=== PATIENT | female | born 1970 | race Caucasian/White ===

== ENCOUNTER 2016-09-14 23:14 | Emergency (ER) | payer BC ==
[~2016-09-14] VITALS: Ht 162.6 cm; Wt 95.4 kg
[2016-09-14 23:41] VITALS: Ht 162.6 cm; Wt 95.4 kg
[2016-09-15] MEDS ORDERED: ONDANSETRON 4 MG INJ IV STA (00:37)
[2016-09-15] MEDS ORDERED: SOD CHLORIDE 0.9% 1,000 ML IV STA (00:37)
[2016-09-15] MEDS ORDERED: morphine 4 MG/ML VIAL IV STA (00:37)
[2016-09-15 01:20] LABS: ADD SCAN DIFF NO
[2016-09-15 01:35] LABS: ALBUMIN 4.2 g/dl (3.3-4.9)
[2016-09-15 01:36] LABS: POTASSIUM 3.7 mmol/L (3.5-5.1)
[2016-09-15 01:37] LABS: INR 0.85; PROTIME 11.6 Sec (12.2-14.2); PT RATIO 0.9
[2016-09-15 01:38] LABS: ALBUMIN/GLOBULIN RATIO 1.1; BILIRUBIN,INDIRECT 0.3 mg/dl (0-1.1); BILIRUBIN,TOTAL 0.3 mg/dl (0.2-1.3); CREATININE 0.58 mg/dl (0.44-1.00); PARTIAL THROMBOPLASTIN TIME 26.9 Sec (25.0-35.0)
[2016-09-15 01:39] LABS: BASOPHILS % 0.5 % (0.0-2.0); CALCIUM 9.5 mg/dl (8.4-10.2); EOSINOPHILS # 0.2 10^3/ul (0.0-0.5); EOSINOPHILS % 2.7 % (0.0-7.0); HEMATOCRIT 36.5 % (37.0-47.0); HEMOGLOBIN 11.7 g/dl (12.0-16.0); LYMPHOCYTES # 2.3 10^3/ul (0.8-2.9); LYMPHOCYTES % 26.2 % (15.0-51.0); MEAN CORPUSCULAR HEMOGLOBIN 27.2 pg (29.0-33.0); MEAN CORPUSCULAR HGB CONC 32.1 g/dl (32.0-37.0); MEAN CORPUSCULAR VOLUME 84.9 fl (82.0-101.0); MEAN PLATELET VOLUME 11.1 fl (7.4-10.4); MONOCYTE # 0.7 10^3/ul (0.3-0.9); MONOCYTES % 8.2 % (0.0-11.0); NEUTROPHIL # 5.4 10^3/ul (1.6-7.5); NEUTROPHILS % 62.1 % (39.0-77.0); PLATELET COUNT 330 10^3/UL (140-415); RED CELL DISTRIBUTION WIDTH 14.3 % (11.5-14.5); WHITE BLOOD COUNT 8.8 10^3/ul (4.8-10.8)
--- NOTE | 2016-09-15 01:45 | RADRPT ---
PROCEDURE: XR Knee. CLINICAL INDICATION: Trauma TECHNIQUE: AP, lateral and oblique view of the right knee were obtained. COMPARISON: There are no similar studies submitted for comparison. FINDINGS: There is normal mineralization.There is no acute fracture or dislocation.No destructive lesion is id entified. There is no joint effusion. IMPRESSION: No fracture or dislocation. RPTAT: HIKT .Sacha Acuña MD, MD Date Time Electronically viewed and signed by .Sacha Acuña MD, MD on 09/15/2016 01:44 .T/
[2016-09-15] MEDS ORDERED: LIDOCAINE 2% (MDV) 20 ML INJ INJ ONE (02:00)
[2016-09-15] MEDS ORDERED: PIPER-TAZO 3.375 GM IV (PMX) 100 ML IVPB ONE (02:00)
--- NOTE | 2016-09-15 02:48 | ERD ---
ER Documentation Chief Complaint Date/Time DATE: 09/15/16 TIME: 02:45 Chief Complaint Pt reports mechanical fall to R knee with laceration and appears to bone HPI Chemical fall to right knee with a laceration. She was ambulatory at the scene but the laceration is "deep". No fevers no chills no nausea no vomiting no other current complaints. Tetanus is up-to-date. ROS All systems reviewed and are negative except as per history of present illness. PMhx/Soc Medical and Surgical Hx: pt denies Medical Hx History of Surgery: Yes (c/s, endometrial tissue removal) Anesthesia Reaction: No Hx Psychiatric Problems: Yes (anxiety) Hx Alcohol Use: No Hx Substance Use: No Hx Tobacco Use: No Smoking Status: Never smoker Physical Exam Vitals Vital Signs Date Time Temp Pulse Resp B/P Pulse Ox O2 Delivery O2 Flow Rate FiO2 09/14/16 23:41 98.7 105 24 185/108 100 Physical Exam Const: [] Head: Atraumatic Eyes: Normal Conjunctiva ENT: Normal External Ears, Nose and Mouth. Neck: Full range of motion..~ No meningismus. Resp: Clear to auscultation bilaterally Cardio: Regular rate and rhythm, no murmurs Abd: Soft, non tender, non distended. Normal bowel sounds Skin: No petechiae or rashes Back: No midline or flank tenderness Ext: No cyanosis, or edema Neur: Awake and alert Psych: Normal Mood and Affect Result Diagram: 09/15/1610409/15/16 010 Results 24 hrs Laboratory Tests Test 09/15/16 01:05 White Blood Count 8.810^3/ul Red Blood Count 4.3010^6/ul Hemoglobin 11.7g/dl Hematocrit 36.5% Mean Corpuscular Volume 84.9fl Mean Corpuscular Hemoglobin 27.2pg Mean Corpuscular Hemoglobin Concent 32.1g/dl Red Cell Distribution Width 14.3% Platelet Count 26577^3/UL Mean Platelet Volume 11.1fl Neutrophils % 62.1% Lymphocytes % 26.2% Monocytes % 8.2% Eosinophils % 2.7% Basophils % 0.5% Nucleated Red Blood Cells % 0.0/100WBC Neutrophils # 5.410^3/ul Lymphocytes # 2.310^3/ul Monocytes # 0.710^3/ul Eosinophils # 0.210^3/ul Basophils # 0.010^3/ul Nucleated Red Blood Cells # 0.010^3/ul Prothrombin Time 11.6Sec Prothrombin Time Ratio 0.9 INR International Normalized Ratio 0.85 Activated Partial Thromboplast Time 26.9Sec Sodium Level 136mmol/L Potassium Level 3.7mmol/L Chloride Level 101mmol/L Carbon Dioxide Level 27mmol/L Anion Gap 12 Blood Urea Nitrogen 13mg/dl Creatinine 0.58mg/dl Glucose Level 104mg/dl Calcium Level 9.5mg/dl Total Bilirubin 0.3mg/dl Direct Bilirubin 0.00mg/dl Indirect Bilirubin 0.3mg/dl Aspartate Amino Transf (AST/SGOT) 20IU/L Alanine Aminotransferase (ALT/SGPT) 23IU/L Alkaline Phosphatase 86IU/L Total Protein 8.0g/dl Albumin 4.2g/dl Globulin 3.80g/dl Albumin/Globulin Ratio 1.10 Current Medications Medications (Trade) Dose Ordered Sig/Serena Route PRN Reason Start Time Stop Time Status Last Admin Dose Admin Sodium Chloride (NS) 1,000 ml @ 1,000 mls/hr Q1H STAT IV 09/15/16 00:37 09/15/16 01:36 DC 09/15/16 01:06 Morphine Sulfate (morphine) 4 mg ONCE STAT IV 09/15/16 00:37 09/15/16 00:38 DC 09/15/16 01:06 Ondansetron HCl 4 mg 4 mg ONCE STAT IV 09/15/16 00:37 09/15/16 00:38 DC 09/15/16 01:06 Piperacillin Sod/ Tazobactam Sod (Zosyn 3.375gm/ 100 ml (Pmx)) 100 ml @ 200 mls/hr ONCE ONCE IVPB 09/15/16 02:00 09/15/16 02:29 DC Lidocaine (Xylocaine 2% (Mdv) 20 ml) 20 ml ONCE ONCE INJ 09/15/16 02:00 09/15/16 02:01 DC Procedures/MDM X-ray Knee 3V Interpreted by me: Bones: [No fracture] Joints: [No dislocation] Foreign body: [None] Laceration Repair by me: Anesthesia: 1% lidocaine locally Location: Right knee Tendon/Joint/Nerves: No injury Foreign body: None detected after copious irrigation and exploration Technique: Simple Interrupted Sutures Complexity: No subcutaneous sutures/mucosal repair/ edge excision Post Closure Length: 7 cm Patient's bleeding was easily controlled in the department and there is no indication of anemia. No evidence of compartment syndrome, neurologic injury, vascular injury, open joint, tendon laceration, or foreign body. Patient is appropriate for outpatient follow up. 48 hour wound check. Scar minimization instructions given. Medical decision-making: Patient comes in with a right knee laceration. Wound is been closed. Hemostasis achieved. Patient instructed to use crutches for the next 5 days until suture removal. Return for any other current complaints. Return in 2 days for wound check. Discharged home with Keflex for antibiotic coverage along with topical bacitracin. Given [place] for pain control. Departure Diagnosis: Primary Impression: Knee pain Laterality: right Chronicity: acute Qualified Code: M25.561 - Acute pain of right knee Additional Impression: Laceration Condition: Stable YOLY MOON Sep 15, 2016 02:48
[2016-09-15] MEDS ORDERED: CEPH-443 PO (02:50)
[2016-09-15] MEDS ORDERED: HYDR-902 PO (02:50)
[2016-09-15] MEDS ORDERED: HYDROCODONE/APAP (10/325) TAB PO ONE (03:00)
[2016-09-15] MEDS ORDERED: DIPHTH/TET/ACEL PERTUSS (ADULT) 0.5 ML VIAL IM* ONE (03:00)
[2016-09-15 03:19] VITALS: BP 164/76; PULSE 87; RESP 18; TEMP 98.5
== END 2016-09-15 04:18 | disposition home or self-care (01) ==
LOC: E/R 23:14
DX: S81.011A Laceration without foreign body, right knee, initial encounter (principal); W18.39XA Other fall on same level, initial encounter; Y92.9 Unspecified place or not applicable; Z23 Encounter for immunization
CPT/HCPCS: 12002; 36415; 73562; 80053; 85025; 85610; 85730; 87040; 90471; 90715; 96374; 96375; 99284; J2270; J2405; J2543; J7030